=== PATIENT | female | born 1940 | race Caucasian/White ===

== ENCOUNTER 2017-09-23 14:49 | Emergency (ER) | payer OTHER ==
[~2017-09-23] VITALS: Ht 167.6 cm; Wt 83.0 kg
[2017-09-23 15:39] LABS: BASOPHILS # (AUTO) 0.02 x10^3/uL (0-0.1); BASOPHILS % (AUTO) 0 % (0-1); EOSINOPHILS # (AUTO) 0.18 x10^3/uL (0-0.4); EOSINOPHILS % (AUTO) 2 % (1-7); LYMPHOCYTES # (AUTO) 1.64 x10^3/uL (1-3.4); LYMPHOCYTES % (AUTO) 21 % (22-44); MD NO; MEAN CORPUSCULAR HEMOGLOBIN 29.6 pg (27.0-34.8); MEAN CORPUSCULAR HGB CONC 32.9 g/dL (32.4-35.8); MEAN PLATELET VOLUME 7.6 fL (7.4-10.4); MONOCYTES # (AUTO) 0.48 x10^3/uL (0.2-0.8); MONOCYTES % (AUTO) 6 % (2-9); NEUTROPHILS % (AUTO) 70 % (42-75); PLATELET COUNT 336 x10^3/uL (130-400); RED BLOOD COUNT 3.54 x10^6/uL (3.82-5.3); RED CELL DISTRIBUTION WIDTH 14.3 % (9.6-15.2)
[2017-09-23 15:50] LABS: ALANINE AMINOTRANSFERASE 21 U/L (12-78); ALBUMIN 3.4 g/dL (3.4-5.0); ANION GAP 6 mmol/L (5-15); CALCIUM 8.3 mg/dL (8.5-10.1); CHLORIDE 108 mmol/L (98-107); CREATININE 0.96 mg/dL (0.55-1.02)
[2017-09-23 15:55] LABS: ALKALINE PHOSPHATASE 121 U/L (45-117); BILIRUBIN,TOTAL 0.4 mg/dL (0.2-1.0); TOTAL PROTEIN 7.3 g/dL (6.4-8.2); TROPONIN I < 0.015 ng/mL (0.000-0.045)
[2017-09-23 16:32] LABS: MICROSCOPIC AUTO
[2017-09-23 16:35] LABS: CULTURE INDICATED? YES
[2017-09-23] MEDS ORDERED: LOSA50TA6 PO (16:41)
[2017-09-23] MEDS ORDERED: CARV3.122 PO (16:41)
[2017-09-23] MEDS ORDERED: ESCI10TA PO (16:41)
[2017-09-23] MEDS ORDERED: CEFTRIAXONE 1,000 MG in SODIUM CHLORIDE 0.9% 50 ML IV ONE (17:00)
[2017-09-23] MEDS ORDERED: CEFTRIAXONE PMX 1GM/50ML 50 ML ONE (17:06)
[2017-09-23 17:43] VITALS: BP 148/64
== END 2017-09-23 18:19 | disposition home or self-care (01) ==
LOC: ED 18:00
DX: N30.00 Acute cystitis without hematuria (principal); R42 Dizziness and giddiness; I10 Essential (primary) hypertension
CPT/HCPCS: 36415; 71045; 80053; 81001; 84484; 85025; 87086; 87147; 93005; 96365; 99285; J0696

== ENCOUNTER 2020-03-17 15:19 | Emergency (ER) | payer MEDICARE, OTHER ==
[~2020-03-17] VITALS: Ht 167.6 cm; Wt 89.7 kg
[~2020-03-17 15:19] MED LIST: CARV3.122 PO; ESCI10TA97 PO; LOSA50TA14 PO
--- NOTE | 2020-03-17 15:51 | NUR ---
1st contact. pt in bed on monitor. no distress, pt states that she just now is taking her bp meds at bedside.
[2020-03-17 16:10] LABS: BASOPHILS % (AUTO) 1 % (0-1); EOSINOPHILS % (AUTO) 4 % (1-7); LYMPHOCYTES % (AUTO) 32 % (22-44); MEAN CORPUSCULAR HEMOGLOBIN 26.1 pg (27.0-34.8); MEAN CORPUSCULAR HGB CONC 32.4 g/dL (32.4-35.8); MEAN PLATELET VOLUME 7.1 fL (7.4-10.4); MONOCYTES % (AUTO) 8 % (2-9); NEUTROPHILS % (AUTO) 55 % (42-75); PLATELET COUNT 375 x10^3/uL (130-400); RED BLOOD COUNT 3.64 x10^6/uL (3.82-5.3); RED CELL DISTRIBUTION WIDTH 16.8 % (9.6-15.2)
[2020-03-17 16:11] LABS: MD NO
--- NOTE | 2020-03-17 16:16 | NUR ---
TASK RN: PT RESTING ON GURNEY. NADN. JONES.
[2020-03-17 16:18] LABS: ALBUMIN 3.4 g/dL (3.4-5.0); ANION GAP 4 mmol/L (5-15); CALCIUM 8.4 mg/dL (8.5-10.1); CHLORIDE 112 mmol/L (98-107); CREATININE 1.03 mg/dL (0.55-1.02)
[2020-03-17 16:53] VITALS: BP 131/64
--- NOTE | 2020-03-17 16:54 | NUR ---
PT UP TO BR. NO DISTRESS
== END 2020-03-17 17:39 | disposition home or self-care (01) ==
LOC: ED 17:37
DX: G44.219 Episodic tension-type headache, not intractable (principal); D53.9 Nutritional anemia, unspecified; I10 Essential (primary) hypertension; I45.10 Unspecified right bundle-branch block; H53.8 Other visual disturbances
CPT/HCPCS: 36415; 70450; 80048; 82040; 85025; 85651; 93005; 99285